=== PATIENT | male | born 1960 | race Caucasian/White ===

== ENCOUNTER 2017-08-02 19:59 | Emergency (ER) | payer MEDICAID ==
[~2017-08-02] VITALS: Ht 175.3 cm; Wt 87.1 kg
[~2017-08-02 19:59] MED LIST: AMOXICILLIN AND1 TER PO; ASPIRIN 81MG TA81 MG PO; ATORVASTATIN CA20 M1 PO; AUGMENTIN 875-1 EACH PO; BACTRIM DS 8001 TA1 PO; CITALOPRAM HYDR20 MG PO; CLOPIDOGREL75 M2 PO; FUROSEMIDE 40MG40 M1 PO; IMDUR 30MG. TAB30 MG PO; LISINOPRIL 10MG10 MG PO; LISINOPRIL10 MG PO; LORTAB 5/3251 TAB PO; LORTAB 5/500 501 TAB PO; MUPIROCIN2% TP; OMEPRAZOLE40 MG PO; POTASSIUM CHLO10 MEQ PO; PRAVASTATIN 20M20 MG PO; PREDNISONE 20MG20 MG PO; VITAMIN D2000 I1 PO; ZANTAC 150150 MG PO
--- NOTE | 2017-08-02 20:42 | Emergency Room Report ---
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 N Clinical Suspician of Infection? N Mental Status: 1 - Regular (Normal Baseline) Sepsis Risk:Low Sepsis Risk Have you (or family members/close friends) recently traveled outside the [place]? N If Yes, where/when: Have you had exposure to infectious disease within the past month? N TB? Other? 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 Cardiac Chest Pain Chest pain indicative of cardiac No Timing/Duration this evening Severity moderate ALLERGIES Coded Allergies: Macrolide Antibiotics (Mild, UPSET STOMACH 06/13/17) erythromycin base (Mild, UPSET STOMACH 06/13/17) Home Medications Reported Medications ISOSORBIDE MONONITRATE (IMDUR 30MG) 30 MG PO DAILY Potassium Chloride (POTASSIUM CHLORIDE 10mEq CAP) 20 MEQ PO DAILY CLOPIDOGREL BISULFATE (Clopidogrel) 75 MG PO DAILY #30 TAB Furosemide 40 MG PO DAILY #30 TAB Atorvastatin Calcium 20 MG PO DAILY #30 TAB Omeprazole (Omeprazole 40MG) 40 MG PO DAILY #30 Cholecalciferol (Vitamin D) 4,000 IUNITS PO DAILY Lisinopril 10 MG PO DAILY #30 Citalopram Hydrobromide (Citalopram HBr) 20 MG PO #30 ASPIRIN (Aspirin) 81 MG PO DAILY History Medical History General CAD? No Angina: No RI: No Hypertension? No Hyperlipidemia? Yes CHF? No DVT? No PE? No COPD? Yes Asthma? No Anemia? No GERD? Yes Gastric ulcers? No GI Bleed? No Hernia? No Thyroid Problems? No Hypothyroidism? No CVA? No Seizures? Yes Diabetes? No Insulin Dependent: No Insulin Pump: No Home FSBS? No Renal Insuffiency? No End Stage Renal Disease? No UTI? No Stones? Yes BPH? No GB Disease: No Nephritic Syndrome? No Asplenia? No Hepatitis? No Sickle Cell Disease? No Arthritis? No Migraines? No Cataracts? No Glaucoma? No MRSA? No HIV? No TB? No Anxiety? Yes Depression? Yes Cancer? No More? No Immunization Hx DT/Tetanus 5-10 Years Ago Flu NEVER Pneumonia Refuses Surgical Hx Previous Surgery?Y CARDIAC STENTS RIGHT ELBOW SURGERY Family History Family Hx Diabetes No CAD Yes Hypertension Yes Hyperlipidemia Yes Cancer Yes TB No Social History Smoking Hx Smoker: Former Smoker Tobacco: No Packs/day 2 1/2 - 3 Packs Alcohol Alcohol: No Drugs none Review of Systems All Other Systems Reviewed and Negative Constitutional denies fever Eyes see HPI, blurred vision, foreign body sensation, photophobia, glasses, denies decreased acuity, denies contact lenses ENT denies: ear discharge, epistaxis, throat pain. Respiratory denies cough, denies shortness of breath, denies wheezing Cardiovascular denies chest pain, denies syncope Gastrointestinal denies abdominal pain, denies vomiting Genitourinary denies: dysuria, frequency, hesitancy, hematuria. Musculoskeletal denies back pain, denies joint pain, denies joint swelling, denies neck pain Skin denies rash Psychiatric/Neurological denies headache, denies seizure Physical Exam Vital Signs Vital Signs Date Time Temp Pulse Resp B/P Pulse O2 O2 Flow FiO2 Ox Delivery Rate 08/02 2007 97.9 73 12 159/91 98 - WBC >12,000 or <4,000 or 10% bands? 2 or more SIRS Criteria Met? B/P:159/91 MAP:113 Creatinine >2.0? UA output<0.5ml/kg/hr for 2 hrs? Platelet count >100,000? Lactate >2.0mmol/1? INR >1.2 or PTT > than 60 sec? Evidence of Organ Dysfunction? Provider documented clinical suspician of infection? N Sepsis Criteria Count: 0 Sepsis Risk: Low Sepsis Risk General Appearance no apparent distress Eye Exam - left eye photophobia, left eye corneal abrasion, bilateral eye PERRL, bilateral eye EOMI Comment no hyphema Ear, Nose, Throat normal ENT inspection Neck supple Respiratory Status No: respiratory distress. 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 No Results/Orders Current Medication Orders Sig/Xuan Start time Last Medication Dose Route Stop Time Status Admin Fluorescein Sodium 1 EACH ONCE ONE 08/02 2045 AC OP 08/02 2046 Tetracaine HCl 1 ML ONCE ONE 08/02 2045 AC OP 08/02 2046 Miscellaneous 0 .STK-MED ONE 08/02 2007 DC XX Procedures Eye Procedure Eye Procedure Risks/benefits discussed with pt/guardian? Yes Tetracaine Drops Administered left eye Fluorescein Stick(s) Used left eye Slit lamp exam No Departure Departure Time of Disposition 2030 Disposition DC Home or Self Care(routine) Clinical Impression Primary Impression: Corneal abrasion, left Qualifiers: Encounter type: initial encounter Qualified Code: S05.02XA - Injury of conjunctiva and corneal abrasion without foreign body, left eye, initial encounter Condition STABLE Referrals [facility] Patient Instructions DI for Corneal Abrasion Additional Instructions see dr juliano mann at 915 Discharge Counseling Counseled pt/family regarding diagnosis, follow up needs ED Critical Care Critical Care No at 2042
[2017-08-02 20:49] VITALS: BP 136/92
== END 2017-08-02 20:49 | disposition home or self-care (01) ==
LOC: ER 19:59
DX: S05.02XA Injury of conjunctiva and corneal abrasion without foreign body, left eye, initial encounter (principal); Z79.899 Other long term (current) drug therapy; K21.9 Gastro-esophageal reflux disease without esophagitis; F41.8 Other specified anxiety disorders; Z87.891 Personal history of nicotine dependence; W22.8XXA Striking against or struck by other objects, initial encounter; Y92.018 Other place in single-family (private) house as the place of occurrence of the external cause

== ENCOUNTER 2017-08-31 13:19 | Emergency (ER) | payer OTHER, MEDICAID ==
[~2017-08-31] VITALS: Ht 175.3 cm; Wt 83.9 kg
--- NOTE | 2017-08-31 13:38 | Emergency Room Report ---
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 N Clinical Suspician of Infection? N Mental Status: 1 - Regular (Normal Baseline) Sepsis Risk:Low Sepsis Risk Have you (or family members/close friends) recently traveled outside the [place]? N If Yes, where/when: Have you had exposure to infectious disease within the past month? N TB? Other? Specify: 57 years old white male with a cardiac history who developed 300 pounds equipment on his LEFT middle finger, the patient has to reposition the finger through the anatomical position and came to the ED. Source patient, RN notes reviewed Exam Limitations no limitations ALLERGIES Coded Allergies: Macrolide Antibiotics (Mild, UPSET STOMACH 06/13/17) erythromycin base (Mild, UPSET STOMACH 06/13/17) Home Medications Reported Medications ISOSORBIDE MONONITRATE (IMDUR 30MG) 30 MG PO DAILY Potassium Chloride (POTASSIUM CHLORIDE 10mEq CAP) 20 MEQ PO DAILY CLOPIDOGREL BISULFATE (Clopidogrel) 75 MG PO DAILY #30 TAB Furosemide 40 MG PO DAILY #30 TAB Atorvastatin Calcium 20 MG PO DAILY #30 TAB Omeprazole (Omeprazole 40MG) 40 MG PO DAILY #30 Cholecalciferol (Vitamin D) 4,000 IUNITS PO DAILY Lisinopril 10 MG PO DAILY #30 Citalopram Hydrobromide (Citalopram HBr) 20 MG PO #30 ASPIRIN (Aspirin) 81 MG PO DAILY History Medical History General CAD? No Angina: No [place]: No Hypertension? No Hyperlipidemia? Yes CHF? No DVT? No PE? No COPD? Yes Asthma? No Anemia? No GERD? Yes Gastric ulcers? No GI Bleed? No Hernia? No Thyroid Problems? No Hypothyroidism? No CVA? No Seizures? Yes Diabetes? No Insulin Dependent: No Insulin Pump: No Home FSBS? No Renal Insuffiency? No End Stage Renal Disease? No UTI? No Stones? Yes BPH? No GB Disease: No Nephritic Syndrome? No Asplenia? No Hepatitis? No Sickle Cell Disease? No Arthritis? No Migraines? No Cataracts? No Glaucoma? No MRSA? No HIV? No TB? No Anxiety? Yes Depression? Yes Cancer? No More? No Immunization Hx DT/Tetanus 5-10 Years Ago Flu NEVER Pneumonia Refuses Surgical Hx Previous Surgery?Y CARDIAC STENTS RIGHT ELBOW SURGERY Family History Family Hx Diabetes No CAD Yes Hypertension Yes Hyperlipidemia Yes Cancer Yes TB No Social History Smoking Hx Smoker: Former Smoker Tobacco: Yes Type Cigarettes Packs/day 2 1/2 - 3 Packs Alcohol Alcohol: No Review of Systems All Other Systems Reviewed and Negative Constitutional no symptoms reported Eyes no symptoms reported ENT no symptoms reported. Respiratory no symptoms reported Cardiovascular no symptoms reported Gastrointestinal no symptoms reported Genitourinary no symptoms reported. Musculoskeletal see HPI (distal and middle phalanges) Skin no symptoms reported Psychiatric/Neurological no symptoms reported Physical Exam Vital Signs Vital Signs Date Time Temp Pulse Resp B/P Pulse O2 O2 Flow FiO2 Ox Delivery Rate 08/31 1329 98.8 80 18 143/82 97 - WBC >12,000 or <4,000 or 10% bands? 2 or more SIRS Criteria Met? B/P:143/82 MAP:102 Creatinine >2.0? UA output<0.5ml/kg/hr for 2 hrs? Platelet count >100,000? Lactate >2.0mmol/1? INR >1.2 or PTT > than 60 sec? Evidence of Organ Dysfunction? Provider documented clinical suspician of infection? N Sepsis Criteria Count: 0 Sepsis Risk: Low Sepsis Risk General Appearance normal appearance, WD/WN Eye Exam - bilateral eye normal exam, bilateral eye PERRL, bilateral eye EOMI Ear, Nose, Throat hearing grossly normal, normal ENT inspection Neck normal inspection, non-tender, supple, full range of motion Respiratory Status Yes: trachea midline, chest symmetrical, non tender chest. No: respiratory distress. Lung Sounds bilateral: normal breath sounds, lungs clear. Cardiovascular normal exam, regular rate/rhythm, no peripheral edema, no gallop, no JVD, no murmur, no rub, normal peripheral pulses Gastrointestinal normal bowel sounds, normal exam, non tender, soft, no organomegaly Back normal inspection, no CVA tenderness, no vertebral tenderness Extremities there is an avulsion of the skin at the bases all the, multiple laceration on the palmar surface of the LEFT middle finger. 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 No Results/Orders Current Medication Orders Sig/Xuan Start time Last Medication Dose Route Stop Time Status Admin Bupivacaine HCl 0 .STK-MED ONE 08/31 1328 DC .ROUTE Lidocaine HCl 0 .STK-MED ONE 08/31 1328 DC .ROUTE Orders Procedure Date/time Status [id number] (MIDDLE)-3 VIEWS 08/31 1324 Active XRAY/CT/US XRAY/CT/US XRAY finger(s) XR interpretation by reviewed by me Xray Results open fracture distal phalanx phalanx of the middle LEFT. Departure Departure Time of Disposition 1336 Disposition DC/XFER from ER to [facility] Clinical Impression Primary Impression: Fracture, finger, distal phalanx, open Condition STABLE Additional Instructions After x-ray the patient I contacted Dr. Donovan DIAZ hand who accepted the patietn to the ED The patien was given po abx and pain medicine. He declined Ambulance transport and went by private vehicle. He is aware of the high risk for infection and bone infection, possible loss of thins finger. Discharge Counseling Counseled pt/family regarding diagnosis, test results, medications/RX, follow up needs ED Critical Care Critical Care No If Critical Care minutes are documented, the time involved in the performance of seperately reportable procedures was not counted toward critical care time documented. I directly delivered medical care to this critically ill and/or injured patient. Timely evaluation and treatment was necessary to address the significant organ system(s) dysfunction present in this patient. at 1401
--- NOTE | 2017-08-31 14:11 | RADIOLOGY REPORT PS360 ---
[id number] (MIDDLE)-3 VIEWS COMPARISON: None HISTORY: Crush injury to middle finger TECHNIQUE: AP lateral and oblique views FINDINGS: There is a comminuted fracture of the terminal tuft of the distal phalanx of the middle finger. There appears be a bulge in the nail bed. There is diffuse soft tissue swelling of the middle finger. All the metacarpals and remaining phalanges appear intact. The carpal bones appear grossly normal. IMPRESSION: Crush injury to distal phalanx no finger with comminuted transverse fracture through the terminal tuft and soft tissue injury as well
[2017-08-31 14:12] LABS: HEMOGLOBIN 13.8 g/dL (14.1-18.0); LYMPH # 1.9 K/mm3 (0.7-4.5); LYMPH % 28.1 % (10-50)
[2017-08-31 14:50] VITALS: BP 141/82
--- OUTSIDE RECORDS SUMMARY | 2017-09-07 19:58 | External Medical Summary Rpt ---
Author Author DIANN Álvarez, DIANN Álvarez Organization [employer] Address Unknown Phone Unavailable
--- OUTSIDE RECORDS SUMMARY | 2017-09-07 19:58 | External Medical Summary Rpt | CCD ---
Demographics Preferred Language Vietnamese Marital Status Unknown Anabaptism Affiliation Unknown Race Unknown Ethnic Group Unknown Author Author , NESTOR TIDWELL Address Unknown Phone Immunization No patient found.
--- OUTSIDE RECORDS SUMMARY | 2017-09-07 19:58 | External Medical Summary Rpt | CCD ---
Demographics Preferred Language Syrian Marital Status Unknown Denominational Affiliation Unknown Race Unknown Ethnic Group Unknown Author Author , NESTOR TIDWELL Address Unknown Phone Immunization No patient found.
== END 2017-08-31 14:54 | disposition short-term general hospital (02) ==
LOC: ER 13:19
PROVIDERS: Emergency Medicine
DX: S62.663B Nondisplaced fracture of distal phalanx of left middle finger, initial encounter for open fracture (principal); W22.8XXA Striking against or struck by other objects, initial encounter; Y92.69 Other specified industrial and construction area as the place of occurrence of the external cause; Y99.0 Civilian activity done for income or pay; Z88.1 Allergy status to other antibiotic agents; Z79.82 Long term (current) use of aspirin

== ENCOUNTER 2017-09-03 15:03 | Emergency (ER) | payer OTHER, MEDICAID ==
[2017-09-03 16:45] VITALS: BP 142/82
--- OUTSIDE RECORDS SUMMARY | 2017-09-08 20:43 | External Medical Summary Rpt | CCD ---
Demographics Preferred Language Egyptian Marital Status Unknown Yarsani Affiliation Unknown Race Unknown Ethnic Group Unknown Author Author , NESTOR TIDWELL Address Unknown Phone Immunization No patient found.
--- OUTSIDE RECORDS SUMMARY | 2017-09-08 20:43 | External Medical Summary Rpt | CCD ---
Demographics Preferred Language Hungarian Marital Status Unknown Voodoo Affiliation Unknown Race Unknown Ethnic Group Unknown Author Author , NESTOR TIDWELL Address Unknown Phone Immunization No patient found.
== END 2017-09-03 16:46 | disposition home or self-care (01) ==
LOC: ER 15:03 → ERCL 15:42
DX: G89.11 Acute pain due to trauma (principal); S62.663 Nondisplaced fracture of distal phalanx of left middle finger

== ENCOUNTER → 2017-11-06 | Outpatient (CLI) | payer SELFPAY | LOC: UTC.OUT 08:40 | DX: Z02.4 Encounter for examination for driving license (principal) ==